=== PATIENT | female | born 1980 | race Caucasian/White ===

== ENCOUNTER 2020-10-29 09:58 | Emergency (ER) | payer BC, OTHER ==
[2020-10-29 10:09] VITALS: BMI 16.3
[2020-10-29] MEDS ORDERED: ACETAMINOPHEN 500 MG TABLET (FP) PO ONE (10:15)
[2020-10-29] MEDS ORDERED: ACETAMINOPHEN 325 MG TABLET (FP) ONE (10:25)
[2020-10-29 10:34] LABS: BASO % 0.6 % (0-2.0); EOS % 0.9 % (0-4.5); HEMATOCRIT 35.9 % (32.4-45.2); HEMOGLOBIN 11.8 GM/dl (10.7-15.3); LYMPH % 23.7 % (8-40); MCH 26.2 pg (25.7-33.7); MCHC 32.8 g/dl (32.0-36.0); MEAN CELL VOLUME 79.8 fl (80-96); MEAN PLT VOLUME 8.6 fl (7.5-11.1); NEUT % 66.8 % (42.8-82.8); PLATELET COUNT 276 10^3/uL (134-434); RDW 14.4 % (11.6-15.6); WHITE BLOOD COUNT 5.4 K/mm3 (4.0-10.8)
[2020-10-29 10:50] LABS: ALBUMIN 4.2 g/dl (3.4-5.0); BILIRUBIN,TOTAL 0.7 mg/dl (0.2-1); CALCIUM 9.1 mg/dl (8.5-10); CREATININE 0.6 mg/dl (0.55-1.3); TOT PROT 7.1 g/dl (6.4-8.2)
[2020-10-29] MEDS ORDERED: CYCLOBENZAPRINE HCL 10 MG TABLET (FP) PO ONE (11:26)
[2020-10-29] MEDS ORDERED: LIDOCAINE 5% TOPICAL PATCH TP ONE (11:26)
[2020-10-29] MEDS ORDERED: CYCLOBENZAPRINE HCL 10 MG TABLET (FP) ONE (11:29)
[2020-10-29] MEDS ORDERED: LIDOCAINE 5% TOPICAL PATCH ONE (11:30)
[2020-10-29] MEDS ORDERED: ASPIRIN 81 MG CHEWABLE TABLETS PO ONE (12:21)
[2020-10-29] MEDS ORDERED: ASPIRIN 81 MG CHEWABLE TABLETS ONE (12:38)
[2020-10-29 15:44] VITALS: BP 101/68; PULSE 69; TEMP 98.6
[2020-10-29] MEDS ORDERED: LIDOCAINE PATCH REMOVAL MC SCH (22:00)
== END 2020-10-29 18:04 | disposition left against medical advice (07) ==
LOC: FER 09:58
DX: I21.4 Non-ST elevation (NSTEMI) myocardial infarction (principal)
CPT/HCPCS: 36415; 71046-TC-FY; 80053; 82550; 82553; 84484; 84703; 85025; 85379; 93005; 99285-25; C9803; U0003; U0005